=== PATIENT | female | born 1970 | race Caucasian/White ===

== ENCOUNTER → 2017-03-30 10:42 | Outpatient (CLI) | payer OTHER ==
[2015-02-10 05:55] VITALS: BMI 63.6
[~2017-03-30 10:42] MED LIST: APAP325 MG PO; CIPRO500 MG PO; COLACE100 MG PO; CYMBALTA60 MG PO; DILAUDID-51 MG/ML IV; EFFEXOR37.5 MG PO; MERREM 1 GM/NS 11 G1 IV; ONDANSETRON4 MG/2 M3 IV; OXYCODONE HCL10 MG PO; PRILOSEC20 MG PO; PROTONIX I40 MG/VIAL IV; SODIUM CL 0.91000 ML IV; TORADOL10 MG PO; ZANAFLEX4 MG PO; ZESTORETIC 10/11 TAB PO; [UNRECOGNIZED DRUG - OTHER]
== END | disposition home or self-care (01) ==
LOC: D.RAD 10:42
DX: Z02.71 Encounter for disability determination (principal)